=== PATIENT | female | born 1965 | race Native Hawaiian/Other Pacific Islander ===

== ENCOUNTER 2017-01-18 12:33 | Outpatient (CLI) | payer BC | END 2017-01-18 12:34 | disposition home or self-care (01) | DX: E78.5 Hyperlipidemia, unspecified (principal); I10 Essential (primary) hypertension; E66.9 Obesity, unspecified ==

== ENCOUNTER 2019-09-19 08:25 | Outpatient (CLI) | payer BC ==
--- NOTE | 2019-09-19 12:10 | Mammography Report ---
Reason: ROUTINE MAMMO Procedure Date: 09/19/2019 Accession Number: [id number] / [id number] Procedure: BILLY - Screening Mammo w/Abel CPT Code: FULL RESULT: EXAM: Screening Mammo w/Abel DATE: 09/19/2019 8:52 AM CLINICAL HISTORY: New baseline examination. TECHNIQUE: (B) - Bilateral CC and MLO views were obtained. COMPARISON: None PARENCHYMAL PATTERN: (A) - The breasts demonstrate scattered fibroglandular densities bilaterally. FINDINGS: There are no suspicious calcifications, skin thickening, or areas of distortion. In the middle third upper outer left breast approximately 11 cm from the nipple there is a 5 mm round nodule. In the right breast 9:00 position there are 2 nodules, the smaller 6 mm approximately 8.5 cm from the nipple and the larger 8 mm approximately 11 cm from the nipple. Further evaluation of these 3 nodules by ultrasound is suggested. IMPRESSION: Incomplete examination. BI-RADS category 0. Needs additional evaluation by ultrasound bilaterally. RECOMMENDATION: (ADDUS) - Targeted ultrasound recommended. BI-RADS CATEGORY: (0) - Incomplete Examination - need additional evaluation. STANDARD QUALIFYING STATEMENTS: 1. This examination was not reviewed with the aid of Computer-Aided Detection (CAD). 2. A negative or benign imaging report should not preclude biopsy if clinically suspicious findings are present. 3. Dense breasts may obscure an underlying neoplasm. 4. This examination was reviewed the aid of 3D breast imaging (tomosynthesis).
== END 2019-09-19 08:26 | disposition home or self-care (01) ==
LOC: DI 08:25
PROVIDERS: ATTEND Family Medicine
DX: Z12.31 Encounter for screening mammogram for malignant neoplasm of breast (principal)
CPT/HCPCS: 77063; 77067

== ENCOUNTER 2019-11-10 11:43 | Outpatient (CLI) | payer BC ==
--- NOTE | 2019-11-10 13:53 | Ultrasound Report ---
Reason: BILATERAL ABNORMAL MAMMOGRAM Procedure Date: 11/10/2019 Accession Number: [id number] / [id number] Procedure: US - Breast Unilateral Limited CPT Code: Final Report FULL RESULT: EXAM: Breast Unilateral Limited, Breast Unilateral Limited DATE: 11/10/2019 1:40 PM CLINICAL HISTORY: BILATERAL ABNORMAL MAMMOGRAM COMPARISON: None. TECHNIQUE: Targeted ultrasound was performed of the left breast in the area of clinical concern at 1 and 2 o'clock and 10 cm distance from the nipple. Color Doppler was employed as appropriate. Targeted ultrasound was performed of the right breast in the area of clinical concern at 9 o'clock and 6 cm distance from the nipple. Color Doppler was employed as appropriate. Targeted ultrasound was performed of the right breast in the area of clinical concern at 9 o'clock and 11 cm distance from the nipple. Color Doppler was employed as appropriate. FINDINGS: Left breast: Normal breast tissue is identified in the area of interest. No abnormal vascularity by color Doppler and no architectural distortion, mass or collection. Right breast: In the 9:00 axis cm from the nipple is a cluster of microcysts with thin septations no solid soft tissue component and no well demarcated border, wider than tall measuring up to 0.7 cm x 0.2 x 0.4 cm, increased through transmission, benign. In the 9:00 axis XI cm from the nipple is a solid wider than tall hypoechoic mass with posterior shadowing and internal vascularity, suspicious. IMPRESSION: Suspicious abnormality. RECOMMENDATION: Right breast ultrasound-guided biopsies 9:00 axis XI cm from the nipple. BIRADS CATEGORY 4 Findings discussed with the office of Dr. Duncan. ROY
== END 2019-11-10 11:44 | disposition home or self-care (01) ==
LOC: DI 11:43
PROVIDERS: ATTEND Family Medicine
DX: R92.8 Other abnormal and inconclusive findings on diagnostic imaging of breast (principal); N60.11 Diffuse cystic mastopathy of right breast
CPT/HCPCS: 76642

== ENCOUNTER 2019-12-14 09:33 | Outpatient (CLI) | payer BC ==
[2019-12-14] MEDS ORDERED: BUFFERED LIDOCAINE 10 ML SYRINGE ONE (10:15)
[2019-12-14] MEDS: BUFFERED LIDOCAINE 10 ML SYRINGE IU ONE (16:30)
--- NOTE | 2019-12-14 16:49 | Ultrasound Report ---
Reason: ABNORMAL MAMMO - RT BREAST NODULE Procedure Date: 12/14/2019 Accession Number: [id number] / [id number] Procedure: US - Biopsy Breast Core CPT Code: Final Report FULL RESULT: EXAM: PROCEDURE: Ultrasound-guided needle biopsy right breast mass. CLINICAL DATA: Targeted mass measuring 0.6 cm with smooth margins in the 9 o'clock axis of the right breast. Informed consent was obtained. Using standard aseptic technique, both 1% buffered lidocaine was injected into the right breast for local anesthesia. A small [place] was made in the skin with a #11 blade. A 12-gauge Fusion[employer] vacuum-assisted device was used to obtain 4 specimens. A specialized biopsy marker clip was placed into the biopsy cavity under ultrasound guidance. The patient was taken to separate mammography machine and a two-view digital mammography was performed to verify the clip placement and any complications. The mammography showed concordant clip position with expected postprocedural changes. The wound was dressed and ice applied. The patient was observed for approximately 15 minutes, then was discharged from diagnostic imaging Department in good condition following instructions on wound care and obtaining biopsy results. The patient is scheduled to receive the biopsy results from the referring physician. The tissue was sent for histologic analysis. IMPRESSION: Ultrasound-guided biopsy of the right breast. AN ADDENDUM WILL BE MADE TO THIS REPORT WHEN PATHOLOGY IS REVIEWED TO ESTABLISH CONCORDANCE.
== END 2019-12-14 09:34 | disposition home or self-care (01) ==
LOC: DI 09:33
PROVIDERS: ATTEND Family Medicine
DX: N60.41 Mammary duct ectasia of right breast (principal); N60.31 Fibrosclerosis of right breast
CPT/HCPCS: 19083

== ENCOUNTER 2023-12-03 12:50 | Outpatient (CLI) | payer BC, OTHER ==
--- NOTE | 2023-12-03 15:55 | CT Report ---
PROCEDURE: Head WO INDICATIONS: WEAKNESS TECHNIQUE: Noncontrast 4.5 mm thick angled axial sections acquired from the foramen magnum to the vertex. For r adiation dose reduction, the following was used: automated exposure control, adjustment of mA and/or kV according to patient size. COMPARISON: None. FINDINGS: Image quality: Excellent. CSF spaces: Basal cisterns are patent. No extra-axial fluid collections. Ventricles are normal in size and shape. Brain: No midline shift. No intracranial masses or hemorrhage. Mcgill-white matter interface is norm al. Skull and face: Calvarium and visualized facial bones are intact, without suspicious lesions. Sinuses: Visualized sinuses and mastoids are clear. IMPRESSION: No acute intracranial pathology. Reviewed by: Philomena Winston MD on 12/03/2023 3:54 PM [facility] Approved by: Philomena Winston MD on 12/03/2023 3:54 PM [facility] Station ID: [id number]
== END 2023-12-03 12:51 | disposition home or self-care (01) ==
LOC: DI 12:50
PROVIDERS: ATTEND Student in an Organized Health Care Education/Training Program
DX: R53.1 Weakness (principal)